=== PATIENT | female | born 1960 | race Caucasian/White ===

== ENCOUNTER 2022-05-06 09:39 | Inpatient (IN) | payer MEDICAID, OTHER ==
[~2022-05-06] VITALS: Ht 152.4 cm; Wt 94.8 kg
[2022-05-06] VITALS (36 sets, daily range): BP systolic 50–142; BP diastolic 18–87
[2022-05-06] MEDS ORDERED: ACETAMINOPHEN 325MG TABLET PO STA (09:51)
[2022-05-06] MEDS ORDERED: VANCOMYCIN 1G PREMIX 200 ML IV ONE (10:00)
[2022-05-06] MEDS ORDERED: SODIUM CHLORIDE 0.9% 1000ML BAG (SEPSIS BOLUS) IV ONE (10:00)
[2022-05-06] MEDS ORDERED: PIPERACILLIN/TAZ 3.375G PREMIX 50 ML IV ONE (10:00)
[2022-05-06 10:27] LABS: BASOPHILS % 0.3 % (0.0-2.0); EOSINOPHILS % 0.1 % (0.0-5.0); HEMATOCRIT. 39.2 % (36.0-48.0); HEMOGLOBIN. 13.3 g/dL (12.0-16.0); MEAN CORPUSCULAR VOLUME 88.5 fL (81.0-99.0); MEAN PLATELET VOLUME 9.7 fl (7.4-10.4); MONOCYTES % 1.2 % (2.0-8.0); NEUTROPHILS % 77.4 % (40.0-76.0); PLATELET 93 x1000/uL (130-400); RED BLOOD CELL COUNT 4.43 mill/uL (4.2-5.4); RED CELL DISTRIBUTION WIDTH 13.3 % (11.6-14.6)
[2022-05-06 10:33] LABS: INR 1.1; PROTHROMBIN TIME 11.7 sec (9.6-11.0)
[2022-05-06 10:36] LABS: CHLORIDE 104 mEq/L (98-107)
[2022-05-06] MEDS ORDERED: NOREPINEPHRINE 8MG/250ML PMX 250 ML IV STA (12:52)
[2022-05-06 12:58] LABS: CLARITY URINE HAZY (CLEAR); COLOR URINE YELLOW (YELLOW); SPECIFIC GRAVITY URINE 1.025 (1.005-1.030)
[2022-05-06 12:59] LABS: KETONES URINE 2+ (NEGATIVE); LEUKOCYTE ESTERASE URINE NEGATIVE (NEGATIVE); NITRITE URINE NEGATIVE (NEGATIVE); OCCULT BLOOD URINE 2+ (NEGATIVE); PROTEIN URINE 3+ (NEGATIVE)
[2022-05-06] MEDS ORDERED: ACETAMINOPHEN 325MG TABLET PO PRN (13:15)
[2022-05-06] MEDS ORDERED: HYDROCODONE/ACETAMINOPHEN 5/325MG TABLET PO PRN (13:15)
[2022-05-06] MEDS ORDERED: DOCUSATE SODIUM 100MG CAPSULE PO PRN (13:15)
[2022-05-06] MEDS ORDERED: CLONIDINE 0.1MG TABLET PO PRN (13:15)
[2022-05-06] MEDS ORDERED: IPRATROPIUM/ALBUTEROL 0.5-3(2.5)MG/3ML NEB HHN PRN (13:15)
[2022-05-06] MEDS ORDERED: LORAZEPAM 0.5MG TABLET PO PRN (13:15)
[2022-05-06] MEDS ORDERED: LIDOCAINE HCL 1% 10 MG/ML 10ML VIAL ONE (13:23)
[2022-05-06] MEDS ORDERED: NOREPINEPHRINE 8 MG in DEXT 5% WATER 242 ML IV PRN (13:30)
[2022-05-06] MEDS: SODIUM CHLORIDE 0.9% 1,000 ML IV SCH (13:50)
[2022-05-06] MEDS ORDERED: PIPERACILLIN/TAZOBACTAM 3.375 G in DEXTROSE 5% WATER 50 ML IV SCH (14:00)
[2022-05-06 14:09] LABS: *AMPHETAMINES SCREEN URINE NEGATIVE (NEGATIVE); *BARBITURATES SCREEN URINE NEGATIVE (NEGATIVE); *BENZODIAZEPINES SCREEN URINE NEGATIVE (NEGATIVE); *COCAINE SCREEN URINE NEGATIVE (NEGATIVE); CANNABINOID URINE SCREEN NEGATIVE (NEGATIVE); METHADONE URINE SCREEN NEGATIVE (NEGATIVE); OPIATES URINE SCREEN NEGATIVE (NEGATIVE); PHENCYCLIDINE URINE SCREEN NEGATIVE (NEGATIVE)
[2022-05-06] MEDS ORDERED: PHENYLEPHRINE 50 MG in DEXT 5% WATER 245 ML IV PRN (14:30)
[2022-05-06] MEDS: ACETAMINOPHEN 325MG TABLET PO PRN (15:42)
[2022-05-06] MEDS: MIDODRINE HCL 5MG TABLET PO SCH (17:39)
[2022-05-06] MEDS: NOREPINEPHRINE 8 MG in DEXT 5% WATER 242 ML IV PRN (18:33)
[2022-05-06] MEDS ORDERED: DEXTROSE 50% WATER 50ML SYRINGE IV PRN (19:45)
[2022-05-06] MEDS: ONDANSETRON HCL 4MG/2ML INJ IV PRN (19:59)
[2022-05-06] MEDS: INSULIN LISPRO 100 UNITS/ML SUBCUT SCH (20:11)
[2022-05-06] MEDS: BLOOD SUGAR DIAGNOSTIC STRIP TEST SCH (21:00)
[2022-05-06] MEDS: GUAIFENESIN 200MG/10ML SUGAR FREE UDC PO PRN (21:07)
[2022-05-06] MEDS: VANCOMYCIN 750MG PMX (XELLIA) 150 ML IV SCH (21:20)
[2022-05-06] MEDS: PIPERACILLIN/TAZOBACTAM 3.375 G in DEXTROSE 5% WATER 50 ML IV SCH (22:44)
[2022-05-07] VITALS (77 sets, daily range): BP systolic 82–175; BP diastolic 39–91
[2022-05-07] MEDS: ACETAMINOPHEN 325MG TABLET PO PRN ×2 (02:12→17:56)
[2022-05-07] MEDS: ONDANSETRON HCL 4MG/2ML INJ IV PRN (02:14)
[2022-05-07 05:35] LABS: BASOPHILS % 0.2 % (0.0-2.0); EOSINOPHILS % 0.2 % (0.0-5.0); HEMATOCRIT. 37.2 % (36.0-48.0); HEMOGLOBIN. 12.4 g/dL (12.0-16.0); LYMPHOCYTES % 8.6 % (20.0-50.0); MEAN CORPUSCULAR HEMOGLOBIN 29.5 pg (28.0-32.0); MEAN CORPUSCULAR VOLUME 88.3 fL (81.0-99.0); MEAN PLATELET VOLUME 11.1 fl (7.4-10.4); MONOCYTES % 5.7 % (2.0-8.0); NEUTROPHILS % 85.3 % (40.0-76.0); PLATELET 85 x1000/uL (130-400); RED BLOOD CELL COUNT 4.21 mill/uL (4.2-5.4)
[2022-05-07] MEDS: PIPERACILLIN/TAZOBACTAM 3.375 G in DEXTROSE 5% WATER 50 ML IV SCH ×3 (06:13→22:25)
[2022-05-07] MEDS: NOREPINEPHRINE 8 MG in DEXT 5% WATER 242 ML IV PRN (06:14)
[2022-05-07] MEDS: SODIUM CHLORIDE 0.9% 1,000 ML IV SCH ×3 (06:23→14:45)
[2022-05-07] MEDS: BLOOD SUGAR DIAGNOSTIC STRIP TEST SCH ×4 (07:06→21:03)
[2022-05-07] MEDS: INSULIN LISPRO 100 UNITS/ML SUBCUT SCH ×4 (07:15→21:11)
[2022-05-07] MEDS: VANCOMYCIN 750MG PMX (XELLIA) 150 ML IV SCH ×2 (10:24→21:10)
[2022-05-07] MEDS: MIDODRINE HCL 5MG TABLET PO SCH ×3 (10:24→17:00)
[2022-05-07] MEDS: INSULIN GLARGINE 100 UNITS/ML SUBCUT SCH ×2 (12:21→22:27)
[2022-05-07] MEDS: GUAIFENESIN 200MG/10ML SUGAR FREE UDC PO PRN (22:37)
[2022-05-08] VITALS (41 sets, daily range): BP systolic 101–176; BP diastolic 48–99
[2022-05-08] MEDS: PIPERACILLIN/TAZOBACTAM 3.375 G in DEXTROSE 5% WATER 50 ML IV SCH ×2 (05:34→14:31)
[2022-05-08 06:00] LABS: BASOPHILS % 0.5 % (0.0-2.0); EOSINOPHILS % 0.8 % (0.0-5.0); HEMATOCRIT. 33.5 % (36.0-48.0); HEMOGLOBIN. 11.2 g/dL (12.0-16.0); LYMPHOCYTES % 14.7 % (20.0-50.0); MEAN CORPUSCULAR HEMOGLOBIN 29.2 pg (28.0-32.0); MEAN CORPUSCULAR VOLUME 87.3 fL (81.0-99.0); MEAN PLATELET VOLUME 10.5 fl (7.4-10.4); MONOCYTES % 5.1 % (2.0-8.0); NEUTROPHILS % 78.9 % (40.0-76.0); PLATELET 77 x1000/uL (130-400); RED BLOOD CELL COUNT 3.84 mill/uL (4.2-5.4); RED CELL DISTRIBUTION WIDTH 13.9 % (11.6-14.6)
[2022-05-08 06:25] LABS: CHLORIDE 113 mEq/L (98-107)
[2022-05-08] MEDS: SODIUM CHLORIDE 0.9% 1,000 ML IV SCH ×2 (07:22→21:50)
[2022-05-08] MEDS: INSULIN LISPRO 100 UNITS/ML SUBCUT SCH ×4 (08:20→21:43)
[2022-05-08] MEDS: BLOOD SUGAR DIAGNOSTIC STRIP TEST SCH ×4 (08:47→21:42)
[2022-05-08] MEDS: MIDODRINE HCL 5MG TABLET PO SCH (08:48)
[2022-05-08] MEDS: INSULIN GLARGINE 100 UNITS/ML SUBCUT SCH ×2 (09:03→21:43)
[2022-05-08] MEDS: POTASSIUM CHLORIDE 20MEQ TABLET SR PO NR (09:03)
[2022-05-08] MEDS: LIDOCAINE 5% PATCH TOP SCH (09:55)
[2022-05-08] MEDS: KETOROLAC 30MG/ML VIAL IV PRN ×4 (10:42→18:01)
[2022-05-08] MEDS ORDERED: CEFTRIAXONE 2 G PREMIX 50 ML IV SCH (15:00)
[2022-05-08] MEDS: GUAIFENESIN 200MG/10ML SUGAR FREE UDC PO PRN (15:54)
[2022-05-08] MEDS ORDERED: CEFTRIAXONE 2 G in DEXTROSE 5% WATER 50 ML IV SCH (16:00)
[2022-05-09] VITALS (21 sets, daily range): BP systolic 118–158; BP diastolic 44–87
[2022-05-09] MEDS: ACETAMINOPHEN 325MG TABLET PO PRN ×2 (04:44→12:19)
[2022-05-09 05:14] LABS: CHLORIDE 113 mEq/L (98-107)
[2022-05-09 05:15] LABS: BASOPHILS % 0.5 % (0.0-2.0); EOSINOPHILS % 1.9 % (0.0-5.0); HEMATOCRIT. 33.3 % (36.0-48.0); HEMOGLOBIN. 11.3 g/dL (12.0-16.0); MEAN CORPUSCULAR HEMOGLOBIN 29.3 pg (28.0-32.0); MEAN CORPUSCULAR VOLUME 86.6 fL (81.0-99.0); MEAN PLATELET VOLUME 10.2 fl (7.4-10.4); MONOCYTES % 7.2 % (2.0-8.0); NEUTROPHILS % 71.4 % (40.0-76.0); PLATELET 95 x1000/uL (130-400); RED BLOOD CELL COUNT 3.85 mill/uL (4.2-5.4); RED CELL DISTRIBUTION WIDTH 14.3 % (11.6-14.6)
[2022-05-09] MEDS: POTASSIUM CHLORIDE 20MEQ TABLET SR PO NR (06:53)
[2022-05-09] MEDS: BLOOD SUGAR DIAGNOSTIC STRIP TEST SCH ×2 (07:50→12:18)
[2022-05-09] MEDS: INSULIN LISPRO 100 UNITS/ML SUBCUT SCH ×2 (08:20→12:18)
[2022-05-09] MEDS: LIDOCAINE 5% PATCH TOP SCH (08:22)
[2022-05-09] MEDS: SODIUM CHLORIDE 0.9% 1,000 ML IV SCH (10:28)
[2022-05-09] MEDS: INSULIN GLARGINE 100 UNITS/ML SUBCUT SCH (10:30)
[2022-05-09] MEDS ORDERED: LEVO750T68 MT (11:44)
== END 2022-05-09 14:28 | disposition home or self-care (01) | DRG 720 ==
LOC: ER 09:39 → EDBEDREQTM 10:21 → EDBEDREQSVC 10:21 → EDBEDREQTM 11:32 → EDBEDREQ 11:32 → EDBEDREQTM 12:45 → EDBEDREQ 12:45 → CVICU 12:57 → EDBEDREQSVC 12:58 → EDBEDREQTM 12:58 → EDBEDREQ 12:59 → ENRESERV 15:03
PROVIDERS: ADMIT Internal Medicine; ATTEND Internal Medicine
PROC: 02HV33Z Insertion of Infusion Device into Superior Vena Cava, Percutaneous Approach (ICD-10-PCS; principal; 2022-05-07)
PROC: B548ZZA Ultrasonography of Superior Vena Cava, Guidance (ICD-10-PCS; 2022-05-07)
DX: A41.59 Other Gram-negative sepsis (principal); R65.21 Severe sepsis with septic shock; E87.20 Acidosis, unspecified; D69.6 Thrombocytopenia, unspecified; Z20.822 Contact with and (suspected) exposure to COVID-19; N13.6 Pyonephrosis; E66.9 Obesity, unspecified; E11.65 Type 2 diabetes mellitus with hyperglycemia; K76.0 Fatty (change of) liver, not elsewhere classified; N20.2 Calculus of kidney with calculus of ureter; R77.8 Other specified abnormalities of plasma proteins; R74.01 Elevation of levels of liver transaminase levels; R07.89 Other chest pain; B96.89 Other specified bacterial agents as the cause of diseases classified elsewhere; Z68.41 Body mass index [BMI] 40.0-44.9, adult; Z79.4 Long term (current) use of insulin
CPT/HCPCS: 36415; 36573; 71045; 74176; 76700; 80048; 80053; 80202; 80305; 81003; 82962; 83036; 83605; 84145; 84484; 85025; 85379; 87077; 87186; 87426; 93005; 93306; 99291; C1725; C9803; J0696; J1815; J1885; J2405; J2543; J3370; J3490; J7030; J7060